=== PATIENT | female | born 1950 | race Caucasian/White ===

== ENCOUNTER 2023-10-14 13:05 | Emergency (ER) | payer BC, SELFPAY ==
[2023-10-14] VITALS (8 sets, daily range): BP systolic 103–145; BP diastolic 53–94; BMI 23.0
[2023-10-14 13:47] LABS: % Basophils 0.5 % (0-2); % Eosinophils 1.3 % (0-6); % Immature Granulocytes 0.2 % (0-0.5); % Lymphocytes 14.3 % (20.5-51.1); % Monocytes 3.9 % (1.7-9.3); % Neutrophils 79.8 % (42.2-75.2); Absolute Basophils 0.1 10^3/uL (0-0.2); Absolute Eosinophils 0.1 10^3/uL (0-0.7); Absolute Lymphocytes 1.3 10^3/uL (1.2-3.4); Absolute Monocytes 0.4 10^3/uL (0.1-0.6); Absolute Neutrophils 7.3 10^3/uL (1.4-6.5); Hematocrit 35.5 % (37.0-47.0); Hemoglobin 11.7 g/dL (12.0-16.0); Mean Corpuscular Hgb 31.8 pg (27.0-31.0); Mean Corpuscular Volume 96.5 fL (81.0-99.0); Mean Platelet Volume 9.9 fL (7.4-10.4); Nucleated Red Blood Cells % 0 %; Platelet Count 242 10^3/uL (130-400); Red Blood Cell Count 3.68 10^6/uL (4.20-5.40); Red Cell Dist. Width 12.4 % (11.5-14.5); White Blood Cell Count 9.2 10^3/uL (4.8-10.8)
[2023-10-14 14:10] LABS: Troponin I < 0.012 ng/ml
[2023-10-14 14:11] LABS: Blood Urea Nitrogen 20 mg/dl (7-17); Calcium 10.4 mg/dl (8.4-10.2); Carbon Dioxide 24 mmol/L (22-30); Chloride 105 mmol/L (98-107); Estimated Creatinine Clearance 34 ml/min; Glucose 117 mg/dl (70-99); Potassium 4.4 mmol/L (3.5-5.1); Sodium 138 mmol/L (135-145); eGFR 43.69
--- NOTE | 2023-10-14 14:22 | ED.GENMED ---
History of Present Illness
General
Chief Complaint: Chest Pain
Source: patient
Exam Limitations: none
Time Seen by Provider: 10/14/23 14:05
Nursing documentation reviewed up to this point in time: agreed with
History of Present Illness
History of Present Illness:
73-year-old female with no significant medical history presents stating
Past History
Past History
ED Past Medical History: Negative Cancer
Social History
Tobacco: Non-smoker
Alcohol: None
Drug: None
Personal:
Living: with family
Employment: Retired
Course
Orders/Labs/Results
Orders:
Orders
10/14/23 13:07
Electrocardiogram (*1) Urgent
Reason for Study: Chest Pain
10/14/23 13:21
Electrocardiogram (*1) Urgent
Reason for Study: Chest Pain
10/14/23 13:36
Basic Metabolic Panel Urgent
Complete Blood Count/With Diff Urgent
Troponin I Urgent
10/14/23 14:03
BMP [Basic Metabolic Panel] Urgent
Abnormal Lab Results
10/14/23
13:36
RBC 3.68 L 10^6/uL
(4.20-5.40)
Hgb 11.7 L g/dL
(12.0-16.0)
Hct 35.5 L %
(37.0-47.0)
MCH 31.8 H pg
(27.0-31.0)
Absolute Neuts (auto) 7.3 H 10^3/uL
(1.4-6.5)
Neutrophils % 79.8 H %
(42.2-75.2)
Lymphocytes % 14.3 L %
(20.5-51.1)
BUN 20 H mg/dl
(7-17)
Creatinine 1.3 H mg/dL
(0.6-1.0)
Glucose 117 H mg/dl
(70-99)
Calcium 10.4 H mg/dl
(8.4-10.2)
10/14/23 13:36
Vital Signs
Initial and Last Documented VS:
Initial Vital Signs
Temp Pulse Resp BP Pulse Ox
98.6 F 86 18 145/77 98
10/14/23 13:15 10/14/23 13:15 10/14/23 13:15 10/14/23 13:15 10/14/23 13:15
Last Documented Vital Signs
Temp Pulse Resp BP Pulse Ox
98.6 F 86 18 135/66 98
10/14/23 13:15 10/14/23 13:30 10/14/23 13:30 10/14/23 13:30 10/14/23 13:30
*EKG
EKG Intrepretation Date: 10/14/23
Interpretation: abnormal
Rate: normal
Rhythm: sinus and PAC's
Wallace: left axis deviation
Interval: normal interval
QRS Pattern: normal QRS
Ischemia: no ischemia
ED Attending Note
-
Portions of this chart may have been created with voice recognition software.� Occasional wrong word or��sound alike� substitutions may have occurred due to the inherent limitations of voice recognition software.
Discharge Plan
Departure
Prescriptions:
No Action
ibuprofen 600 mg tablet
600 mg PO Q6H PRN (Reason: Pain) Qty: 20 0RF
oxycodone-acetaminophen [Percocet] 5-325 mg tablet
1 tab PO Q6HPRN PRN (Reason: pain) Qty: 10 0RF
docusate sodium [Colace] 100 mg capsule
100 mg PO BID Qty: 20 0RF
methylprednisolone [Methylpred DP] 4 mg tablets,dose pack
See Rx Instructions .ROUTE .COMPLEX Qty: 21 0RF
Rx Instructions:
orally per package directions
oxycodone-acetaminophen [Percocet] 5-325 mg tablet
1 tab PO Q6HPRN PRN (Reason: pain) Qty: 10 0RF
lidocaine 5 % adhesive patch,medicated
1 patch topical DAILY Qty: 10 0RF
Rx Instructions:
Apply one patch daily to affected area; leave patch on for 12 hours and then remove for 12 hours.
Referrals:
Hiram Vuong MD [Family Provider] -
Interventions
Interventions:
*General Assessment Last Done: 10/14/23 13:39
*Neglect/Abuse Screening Last Done: 10/14/23 13:39
ED- Cardiac Assessment Last Done: 10/14/23 13:38
Discharge Date and Time
Print Language: CROATIAN
[2023-10-14 14:50] LABS: Blood Urea Nitrogen 17 mg/dl (7-17); Calcium 9.2 mg/dl (8.4-10.2); Carbon Dioxide 19 mmol/L (22-30); Chloride 112 mmol/L (98-107); Estimated Creatinine Clearance 40 ml/min; Glucose 99 mg/dl (70-99); Potassium 4.2 mmol/L (3.5-5.1); Sodium 136 mmol/L (135-145); eGFR 53.39
[2023-10-14] MEDS: PROTONIX IV 40 MG IV (14:52)
[2023-10-14] MEDS: ZOFRAN 4 MG IV (14:53)
[2023-10-14] MEDS: NSS 1000 IV ×2 (14:53→16:51)
[2023-10-14] MEDS: MAALOX 40 PO (14:53)
--- NOTE | 2023-10-14 14:54 | ED.GENMED ---
History of Present Illness
General
Chief Complaint: Chest Pain
Source: patient and spouse
Exam Limitations: none
Time Seen by Provider: 10/14/23 14:05
Nursing documentation reviewed up to this point in time: agreed with
History of Present Illness
History of Present Illness:
Patient is very pleasant 73-year-old female presents with left-sided chest pain somewhat sharp with nausea and indigestion history of reflux Graves' disease hypertension status postcholecystectomy nondrinker non-smoker no fever chills pain is not
worse with movement no fevers,
Past History
Past History
ED Past Medical History: GERD, HTN and Other (Graves); Negative Cancer
ED Past Surgical History: Cholecystectomy
Social History
Tobacco: Non-smoker
Alcohol: None
Drug: None
Personal:
Living: with family
Employment: Retired
Review of Systems
Review of Systems
All Other Systems: Not applicable
Constitutional: Denies fever, fatigue or chills
EENT: Reports no symptoms
Respiratory: Reports no symptoms; Denies trouble breathing
Cardiac: Reports chest pain (Chest wall pain)
ABD/GI: Reports nausea; Denies abdominal pain
: Reports no symptoms
Musculoskeletal: Reports no symptoms
Skin: Reports no symptoms
Neurological: Reports no symptoms
Endocrine: Reports no symptoms
Psychiatric: Reports no symptoms
Phy Exam
Physical Exam
Physical Exam:
Physical Exam
General: no apparent distress, not acutely ill
Neck: No jaundice positive mild proptosis.
Heart: s1/s2 regular rate and rhythm, no murmur. equal radial pulses.
Lungs: no acute respiratory distress. clear bilaterally no reproducible chest wall tenderness
Abdomen: Nontender
Neuro: alert and oriented. no focal neurological deficits
Skin: no rash
Psychiatric: well kept. interactive and cooperative
Extremities: no edema. no calf tenderness
Scores
Heart Score for Chest Pain Patients
STEMI patient?: No
History: Slightly or Non-Suspicious
ECG: Normal
Age: >/= 65 years
Risk Factors: 1 or 2 Risk Factors
Troponin: </= Normal Limit
Heart Score for Chest Pain Patients: 3
Heart Score Risk: 2.5% MACE over next 6 weeks
Course
Orders/Labs/Results
Orders:
Orders
10/14/23 13:07
Electrocardiogram (*1) Urgent
Reason for Study: Chest Pain
10/14/23 13:36
Basic Metabolic Panel Urgent
Complete Blood Count/With Diff Urgent
Troponin I Urgent
10/14/23 14:03
BMP [Basic Metabolic Panel] Urgent
10/14/23 14:37
CR Chest - 2 Views Urgent
Comment:
Reason For Exam: cp
10/14/23 14:48
0.9% Sodium Chloride 1000 ml [Nss] 1,000 ml IV BOLUS
Mag Hydrox/Al Hydrox/Simeth [Maalox] 30 ml Phenobarb/Hyoscy/Atropine/Scop [] 10 ml PO NOW
Pantoprazole [Protonix IV] 40 mg IV NOW STA
10/14/23 14:49
Ondansetron Injectable [Zofran] 4 mg IV NOW STA
10/14/23 14:51
Mag Hydrox/Al Hydrox/Simeth [Maalox] 30 ml .ROUTE .STK-MED ONE
Phenobarb/Hyoscy/Atropine/Scop [] 10 ml .ROUTE .STK-MED ONE
10/14/23 15:06
D-Dimer Urgent
10/14/23 16:20
0.9% Sodium Chloride 1000 ml [Nss] 1,000 ml IV BOLUS
10/14/23 16:21
Troponin I Urgent
10/14/23 16:23
Promethazine [Phenergan] 25 mg 0.9% Sodium Chloride 50 ml [Nss] 50 ml IV NOW
Abnormal Lab Results
10/14/23 10/14/23
13:36 14:03
RBC 3.68 L 10^6/uL
(4.20-5.40)
Hgb 11.7 L g/dL
(12.0-16.0)
Hct 35.5 L %
(37.0-47.0)
MCH 31.8 H pg
(27.0-31.0)
Absolute Neuts (auto) 7.3 H 10^3/uL
(1.4-6.5)
Neutrophils % 79.8 H %
(42.2-75.2)
Lymphocytes % 14.3 L %
(20.5-51.1)
Chloride 112 H mmol/L
(98-107)
Carbon Dioxide 19 L mmol/L
(22-30)
BUN 20 H mg/dl
(7-17)
Creatinine 1.3 H mg/dL 1.1 H mg/dL
(0.6-1.0) (0.6-1.0)
Glucose 117 H mg/dl
(70-99)
Calcium 10.4 H mg/dl
(8.4-10.2)
10/14/23 13:36
10/14/23 14:03
Vital Signs
Initial and Last Documented VS:
Initial Vital Signs
Temp Pulse Resp BP Pulse Ox
98.6 F 86 18 145/77 98
10/14/23 13:15 10/14/23 13:15 10/14/23 13:15 10/14/23 13:15 10/14/23 13:15
Last Documented Vital Signs
Temp Pulse Resp BP Pulse Ox
98.6 F 67 13 139/81 99
10/14/23 13:15 10/14/23 19:00 10/14/23 19:00 10/14/23 19:00 10/14/23 18:30
MDM/Problems Addressed
Differential Diagnosis Includes:
Reflux, pancreatitis muscle strain pneumothorax PE doubt ACS by history and physical
MDM/Problems Addressed:
Left-sided chest wall nausea
Chronic conditions affecting care:
Graves' hypertension
Chronic conditions affecting care: Previous abdomnial surgery
Acute Exacerbation and/or Progression of Chronic Illness: Previous abdomnial surgery
*Radiology
Radiology exam reviewed: preliminary read by ED provider
*Pulse Oximetry
Patient hypoxic: no
*EKG
Interpreted by ED Provider?: Yes
Interpretation: normal
Comparison EKG: no comparison EKG present
Heart Rate: 78
Rate: normal
Rhythm: sinus
Ischemia: no ischemia
*Chainer Interpretation
Rate: normal
Interpretation: normal
Rhythm: sinus
*Critical Care Note
Total Time (30-74mins, 75-104mins- exclusive of procedures): Not Applicable
Update Note
Update Note:
Update, labs noted D-dimer noted chest x-ray report noted
3:40 PM patient feels a bit better still nauseous will repeat her troponin try some Phenergan
ED Attending Note
-
Portions of this chart may have been created with voice recognition software.� Occasional wrong word or��sound alike� substitutions may have occurred due to the inherent limitations of voice recognition software.
Discharge Plan
Departure
Patient Disposition: Home (Routine Discharge)
Date of Disposition: 10/14/23
Time of Disposition: 19:00
Patient with high blood pressure during this ER visit?: No
Condition: Good
Discharge Problem:
Chest pain, Nausea
Instructions: Acid Reflux and GERD in Adults (DC), Chest Pain PCP Follow Up
Prescriptions:
New
promethazine 25 mg tablet
25 mg PO TID PRN (Reason: nausea and vomiting) Qty: 10 0RF
pantoprazole [Protonix] 40 mg tablet,delayed release (DR/EC)
40 mg PO DAILY Qty: 20 0RF
No Action
ibuprofen 600 mg tablet
600 mg PO Q6H PRN (Reason: Pain) Qty: 20 0RF
oxycodone-acetaminophen [Percocet] 5-325 mg tablet
1 tab PO Q6HPRN PRN (Reason: pain) Qty: 10 0RF
docusate sodium [Colace] 100 mg capsule
100 mg PO BID Qty: 20 0RF
methylprednisolone [Methylpred DP] 4 mg tablets,dose pack
See Rx Instructions .ROUTE .COMPLEX Qty: 21 0RF
Rx Instructions:
orally per package directions
oxycodone-acetaminophen [Percocet] 5-325 mg tablet
1 tab PO Q6HPRN PRN (Reason: pain) Qty: 10 0RF
lidocaine 5 % adhesive patch,medicated
1 patch topical DAILY Qty: 10 0RF
Rx Instructions:
Apply one patch daily to affected area; leave patch on for 12 hours and then remove for 12 hours.
Referrals:
Hiram Vuong MD [Family Provider] - Next open appointment
Interventions
Interventions:
*Risk Screen - Suicide Last Done: 10/14/23 19:04
*General Assessment Last Done: 10/14/23 13:39
*Neglect/Abuse Screening Last Done: 10/14/23 13:39
*ED COVID-19 Vaccine History Last Done: 10/14/23 19:04
*Nursing Disposition Last Done: 10/14/23 19:20
ED- Cardiac Assessment Last Done: 10/14/23 13:38
Discharge Date and Time
Discharge Date/Time: 10/14/23 19:20
Print Language: MACEDONIAN
[2023-10-14] MEDS: PHENERGAN 51 MG IV (16:51)
[2023-10-14 16:53] LABS: Troponin I < 0.012 ng/ml
== END 2023-10-14 19:20 | disposition home or self-care (01) ==
LOC: EMR 13:05
PROVIDERS: Emergency Medicine; EMERGENCY PHYSICIAN Emergency Medicine; FAMILY PHYSICIAN Internal Medicine
DX: R07.89 Other chest pain (principal); R11.0 Nausea; K30 Functional dyspepsia; I10 Essential (primary) hypertension; K21.9 Gastro-esophageal reflux disease without esophagitis; E05.00 Thyrotoxicosis with diffuse goiter without thyrotoxic crisis or storm; Z90.49 Acquired absence of other specified parts of digestive tract; Z88.0 Allergy status to penicillin; Z88.2 Allergy status to sulfonamides
CPT/HCPCS: 99284; 96374; 96375 ×2; 96361 ×3; 71046; 80048; 84484; 85025; 85379; 93005